=== PATIENT | female | born 1970 ===

== ENCOUNTER 2016-12-30 15:21 | Inpatient (IN) | payer OTHER ==
[2016-12-30 15:22] VITALS: BMI 29.8
[2016-12-30] MEDS ORDERED: Sodium Chloride 0.9% 1,000 ML IV STA ×2 (16:32→22:22)
--- NOTE | 2016-12-30 16:32 | ED PDOC ---
Arrival/HPI - General Historian: Patient - History of Present Illness Time/Duration: Other (see hpi) Context: Home - General Chief Complaint: Lower Extremity Problem/Injury Time Seen by Provider: 12/30/16 16:10 - History of Present Illness Narrative History of Present Illness (Text): 12/30/16 16:15 This 46 yo female presents to this ED c/o right groin pain x 4 days. Patient stated she developed afever that lasted for 3 days. Patient stated she had partial hysterectomy x 13 days ago[address] Patient saw Dr. Sánchez yesterday, who had ordered blood test. Patient saw Dr. Sabrina Brannon SENIOR SQL DEVELOPER, who recommended to come to ED to have right lower extremity r/o DVT. Patient denies fever, sob, cp , abdominal pain, nausea, vomiting, dizziness, rectal bleeding, or abnormal gait. (Isabel Driscoll) Past Medical History - Provider Review Nursing Documentation Reviewed: Yes - Cardiac Hx Cardiac Disorders: No - Pulmonary Hx Respiratory Disorders: No - Neurological Hx Neurological Disorder: No - HEENT Hx HEENT Disorder: No - Renal Hx Renal Disorder: No - Endocrine/Metabolic Hx Endocrine Disorders: No - Hematological/Oncological Hx Blood Disorders: No - Integumentary Hx Dermatological Disorder: No - Musculoskeletal/Rheumatological Hx Back Pain: Yes Hx Falls: No - Gastrointestinal Hx Gastrointestinal Disorders: Yes Hx Gastroesophageal Reflux: Yes - Genitourinary/Gynecological Hx Genitourinary Disorders: Yes Other/Comment: HX: ABNORMAL UTERINE BLEEDING-PT. REPORTS PERIOD STARTED August AND UP UNTIL TODAY(12/10/16) HAS HAD IRREGULAR BLEEDING HEAVY AT TIMES AND ONLY STOPS FOR A DAY OR 2. - Psychiatric Hx Psychophysiologic Disorder: No Hx Substance Use: No - Surgical History Hx Hysterectomy: Yes (12/17/13) Other/Comment: HX: CRYO-"WHEN I WAS IN MY 20'S". HX: COLON POLYPECTOMY - Anesthesia Hx Anesthesia: Yes Hx Anesthesia Reactions: No Hx Malignant Hyperthermia: No Family/Social History - Physician Review Nursing Documentation Reviewed: Yes Family/Social History: No Known Family HX Smoking Status: Former Smoker Hx Alcohol Use: Yes Frequency of alcohol use: Socially Hx Substance Use: No Allergies/Home Meds Allergies/Adverse Reactions: Allergies No Known Allergies Allergy (Verified 12/10/16 09:10) Home Medications: Home Meds Medication Instructions Recorded Confirmed Naproxen Sodium [Aleve] 220 mg PO DAILY 12/30/16 12/30/16 Medical Decision Making Re-evaluation Time: 21:11 Reassessment Condition: Re-examined, Improving,but remains with symptoms ED Course and Treatment: 12/30/16 21:[address] Sánchez regarding CT scan demonstrating pelvic abscess. Surgical consult was initiated. He agrees with plan for admission. Patient also agreed with plan for admission (Isabel Driscoll) 12/31/16 22:[address] Az Brannon, Care Information Associate who will come see patient in the morning. EKG - NSR at 84 bpm. Explained to patient the CT findings. (Júnior Oconnell) - Lab Interpretations Lab Results: 12/30/16 16:40 12/30/16 16:40 Lab Results 12/30/16 17:47: Urine HCG, Qual Negative 12/30/16 16:40: Sodium 138, Potassium 4.4, Chloride 101, Carbon Dioxide 24, Anion Gap 17, BUN 11, Creatinine 0.6, Est GFR ( Amer) > 60, Est GFR (Non- Af Amer) > 60, Random Glucose 77, Calcium 8.8, Total Bilirubin 0.8, AST 16, ALT 17, Alkaline Phosphatase 57, Total Protein 6.7, Albumin 3.6, Globulin 3.2, Albumin/Globulin Ratio 1.1, Lipase 64 12/30/16 16:40: PT 11.2, INR 1.04, APTT 29.9 12/30/16 16:40: WBC 9.5, RBC 3.35 L, Hgb 10.7 L, Hct 31.3 L, MCV 93.4, MCH 31.9 , MCHC 34.2, RDW 13.0, Plt Count 369, MPV 9.9, Gran % 73.6 H, Lymph % (Auto) 15.1 L, [place] % (Auto) 6.8 H, Eos % (Auto) 4.3, Baso % (Auto) 0.2, Gran # 7.02 H , Lymph # 1.4, [place] # 0.7 H, Eos # 0.4, Baso # 0.02 - RAD Interpretation Narrative RAD Interpretations (Text): 12/30/16 20:51 [facility] (Formerly [facility]) FINDINGS: Lower thorax: Lung bases demonstrate no consolidative lung disease. There is no pleural effusion. ABDOMEN: Liver: Liver is normal in size, position and density. Gallbladder and bile ducts: The gallbladder is normal, without visible stones or wall thickening. Pancreas: Pancreas is normal in size, position and density. Peripancreatic fat planes are clear. Spleen: Spleen is normal in size, position and density. Adrenals: The adrenal glands are normal. Kidneys and ureters: The kidneys are normal in size and density. No stones identified. No mass. Stomach and bowel: No evidence of bowel obstruction. Bowel wall thickening is present in the sigmoid colon region as well as the cecal and terminal ileal region. Appendix: Appendix is visualized and also demonstrates a thickened wall which is probably related to the remainder of the inflammatory disease. The tip extends medially and cephalic, away from the generalized pelvic intra-abdominal abscesses. PELVIS: Bladder: Unremarkable. No mass. Reproductive: Uterus is not well-visualized and there may be a partial hysterectomy. Question of a right ovarian cyst measuring 3.5 x 4 cm, although this may represent an extension of intra-abdominal abscess. ABDOMEN and PELVIS: Intraperitoneal space: Multifocal fluid collections with inflammatory changes in the lower central abdomen and pelvis bilaterally. These are compatible with intra-abdominal abscesses. No free air is noted. Bones/joints: No acute fracture. No dislocation. Soft tissues: Unremarkable. Vasculature: Unremarkable. No abdominal aortic aneurysm. Lymph nodes: No pathologically enlarged retroperitoneal adenopathy appreciated. IMPRESSION: Multiple fluid collections in the right and central pelvis suspicious for abscesses. The largest is in the cul-de-sac region measuring approximately 4 x 7 x 5 cm. Differential includes PID with bilateral tubo-ovarian abscess, less likely inflammatory bowel disease or diverticulitis with associated abscesses. There is a focal fluid collection in the right adnexal region which may represent ovarian cyst or a separate abscess. Thank you for allowing us to participate in the care of your patient. Dictated and Authenticated by: Ciaran Heard MD (Isabel Driscoll) Radiology Orders: 12/30/16 16:32 ABD PELVIS PO & IV CONTRAST [CT] Stat 12/30/16 16:35 DUPLEX LOWER EXTRM VEIN RIGHT [US] Stat 12/30/16 21:06 CHEST PORTABLE [RAD] Stat - Medication Orders Current Medication Orders: Acetaminophen (Tylenol 325mg Tab) 650 mg PO Q4H PRN PRN Reason: Fever >100.5 F Sodium Chloride (Sodium Chloride 0.9%) 1,000 mls @ 100 mls/hr IV .Q10H STA Stop: 12/31/16 08:21 Last Admin: 12/30/16 23:41 Dose: 100 mls/hr Ondansetron HCl (Zofran Inj) 4 mg IVP Q4H PRN PRN Reason: Nausea/Vomiting Discontinued Medications Famotidine (Pepcid) 20 mg IVP STAT STA Stop: 12/30/16 16:33 Last Admin: 12/30/16 16:50 Dose: 20 mg Sodium Chloride (Sodium Chloride 0.9%) 1,000 mls @ 1,000 mls/hr IV .Q1H STA Stop: 12/30/16 17:31 Last Admin: 12/30/16 16:45 Dose: 1,000 mls/hr Metronidazole (Flagyl) 500 mg in 100 mls @ 100 mls/hr IVPB STAT STA PRN Reason: Protocol Stop: 12/30/16 22:04 Last Admin: 12/30/16 23:41 Dose: 100 mls/hr Piperacillin Sod/Tazobactam Sod (Zosyn 4.5 Gm In Ns 100ml) 4.5 gm in 100 mls @ 200 mls/hr IVPB STAT STA PRN Reason: Protocol Stop: 12/30/16 21:34 Last Admin: 12/30/16 21:55 Dose: 200 mls/hr Iohexol (Omnipaque 240 (50 Ml)) Confirm Administered Dose 50 ml .ROUTE .STK-MED ONE Stop: 12/30/16 17:39 Iohexol (Omnipaque 350 100 Ml) Confirm Administered Dose 350 mg .ROUTE .STK-MED ONE Stop: 12/30/16 19:50 Disposition/Present on Arrival - Present on Arrival Any Indicators Present on Arrival: No History of DVT/PE: No History of Uncontrolled Diabetes: No Urinary Catheter: No History of Decub. Ulcer: No History Surgical Site Infection Following: None - Disposition Have Diagnosis and Disposition been Completed?: Yes Disposition Time: 21:11 Patient Plan: Admission - Disposition Diagnosis: Pelvic abscess in female Disposition: HOSPITALIZED Condition: STABLE
[2016-12-30 16:50] LABS: BASO # 0.02 K/mm3 (0.0-2.0); BASO % 0.2 % (0.0-3.0); EOS # 0.4 (0.0-0.7); EOS % 4.3 % (1.5-5.0); GRAN # 7.02 (1.4-6.5); GRAN % 73.6 % (50.0-68.0); HEMOGLOBIN 10.7 gm/dL (12.0-16.0); LYMPH # 1.4 (1.2-3.4); LYMPH % 15.1 % (22.0-35.0); MEAN CELL VOLUME 93.4 fL (80.0-105.0); MEAN CORPUSCULAR HEMOGLOBIN 31.9 pg (25.0-35.0); MEAN CORPUSCULAR HGB CONC 34.2 g/dl (31.0-37.0); MEAN PLATELET VOLUME 9.9 fl (7.0-11.0); MONO # 0.7 (0.1-0.6); MONO % 6.8 % (1.0-6.0); PLATELET COUNT 369 10^3/uL (120.0-450.0); RBC 3.35 10^6/uL (3.5-6.1); WHITE BLOOD COUNT 9.5 10^3/ul (4.5-11.0)
[2016-12-30 17:01] LABS: INR 1.04 (0.93-1.08); PARTIAL THROMBOPLASTIN TIME 29.9 Seconds (23.7-30.8); PROTHROMBIN TIME 11.2 Seconds (9.9-11.8)
[2016-12-30 17:07] LABS: ALB/GLOB RATIO 1.1 (1.1-1.8); ALBUMIN 3.6 g/dL (3.0-4.8); ALT/SGPT 17 U/L (7-56); AST/SGOT 16 U/L (15-39); BLOOD UREA NITROGEN 11 mg/dL (7-21); CALCIUM 8.8 mg/dL (8.4-10.5); GFR AFRICAN-AMERICAN > 60; GFR NON-AFRICAN AMERICAN > 60; LIPASE 64 U/L (23-300)
[2016-12-30] MEDS ORDERED: Iohexol 240 (50 ml) ONE (17:38)
[2016-12-30] MEDS ORDERED: Iohexol 350 MG/100 ML VIAL ONE (19:49)
--- NOTE | 2016-12-30 20:06 | US ---
PROCEDURE: Right lower extremity venous US HISTORY: Leg pain and swelling. Evaluate for DVT. PHYSICIAN(S): Azar Arriola M.D. TECHNIQUE: Duplex sonography and color-flow Doppler with graded compression were used to evaluate the deep venous system of the right lower extremity. FINDINGS: The visualized deep venous system of the right lower extremity is sonographically normal and compressible. Normal waveforms and augmentation are seen. There is no sonographic evidence for deep venous thrombosis in the visualized segments of the right lower extremity. IMPRESSION: 1. No sonographic evidence for deep venous thrombosis in the visualized segments of the right lower extremity.
[2016-12-30] MEDS ORDERED: Piperacill/Tazo 4.5gm in NS 4.5 GM/100 ML BAG IVPB STA (21:05)
[2016-12-30] MEDS ORDERED: metroNIDAZOLE IV 500 mg/100 ml 500 MG/100 ML BAG IVPB STA (21:05)
[2016-12-30 22:45] LABS: INR 1.06 (0.93-1.08); MAGNESIUM 2.2 mg/dL (1.7-2.2); PARTIAL THROMBOPLASTIN TIME 30.7 Seconds (23.7-30.8); PROTHROMBIN TIME 11.4 Seconds (9.9-11.8)
[2016-12-30 23:26] LABS: PH,URINE 8.5 (4.7-8.0); URINE BILIRUBIN NEGATIVE (NEGATIVE); URINE BLOOD TRACE-INTACT (NEGATIVE); URINE GLUCOSE (UA) NEGATIVE (NEGATIVE); URINE LEUKOCYTE ESTERASE NEGATIVE Leu/uL (NEGATIVE); URINE NITRATE NEGATIVE (NEGATIVE); URINE PROTEIN NEGATIVE mg/dL (<30 mg/dL)
[2016-12-30 23:38] LABS: URINE APPEARANCE SL CLOUDY (CLEAR); URINE COLOR STRAW (YELLOW)
[2016-12-30 23:44] LABS: URINE EPITHELIAL CELLS 0 - 2 /hpf (0-5); URINE RBC 0 - 2 /hpf (0-2); URINE WBC 0 - 2 /hpf (0-6)
--- NOTE | 2016-12-31 01:29 | CP.PCM.CON ---
History of Present Illness - History of Present Illness History of Present Illness: Consult Note- Pelvic fluid collection General Surgery- Dr. Watson 46F PMHx of uterine fibroids s/p open partial abdominal hysterectomy b/l salphingectomy on December 17 at [facility], presented to the ED with right groin pain x 4 days. Patient stated she developed a fever that lasted for [address] Sánchez on Tuesday and Dr. Sabrina Brannon MAINTENANCE SUPERVISOR ELECTRICAL on . Pt denies abdominal pain. +NBNB emesis. Regular BM. Pt denies fever, sob, cp, dizziness, blood per rectum. PMH: Uterine Fibroids PSH: Partial abdominal hysterectomy b/l salphingectomy (12/17/16) ALL: NKDA Social: Denies etoh / smoking Review of Systems - Review of Systems All systems: reviewed and no additional remarkable complaints except Past Patient History - Past Medical History & Family History Past Medical History?: Yes - Past Social History Smoking Status: Former Smoker - CARDIAC Hx Cardiac Disorders: No - PULMONARY Hx Respiratory Disorders: No - NEUROLOGICAL Hx Neurological Disorder: No - HEENT Hx HEENT Problems: No - RENAL Hx Chronic Kidney Disease: No - ENDOCRINE/METABOLIC Hx Endocrine Disorders: No - HEMATOLOGICAL/ONCOLOGICAL Hx Blood Disorders: No - INTEGUMENTARY Hx Dermatological Problems: No - MUSCULOSKELETAL/RHEUMATOLOGICAL Hx Back Pain: Yes Hx Falls: No - GASTROINTESTINAL Hx Gastrointestinal Disorders: Yes Hx Gastroesophageal Reflux: Yes - GENITOURINARY/GYNECOLOGICAL Hx Genitourinary Disorders: Yes Other/Comment: HX: ABNORMAL UTERINE BLEEDING-PT. REPORTS PERIOD STARTED August AND UP UNTIL TODAY(12/10/16) HAS HAD IRREGULAR BLEEDING HEAVY AT TIMES AND ONLY STOPS FOR A DAY OR 2. - PSYCHIATRIC Hx Psychophysiologic Disorder: No Hx Substance Use: No - SURGICAL HISTORY Hx Hysterectomy: Yes (12/17/13) Other/Comment: HX: CRYO-"WHEN I WAS IN MY 20'S". HX: COLON POLYPECTOMY - ANESTHESIA Hx Anesthesia: Yes Hx Anesthesia Reactions: No Hx Malignant Hyperthermia: No Meds Allergies/Adverse Reactions: Allergies Allergy/AdvReac Type Severity Reaction Status Date / Time No Known Allergies Allergy Verified 12/10/16 09:10 - Medications Medications: Current Medications Acetaminophen (Tylenol 325mg Tab) 650 mg PO Q4H PRN PRN Reason: Fever >100.5 F Sodium Chloride (Sodium Chloride 0.9%) 1,000 mls @ 100 mls/hr IV .Q10H STA Stop: 12/31/16 08:21 Last Admin: 12/30/16 23:41 Dose: 100 mls/hr Ondansetron HCl (Zofran Inj) 4 mg IVP Q4H PRN PRN Reason: Nausea/Vomiting Physical Exam - Constitutional Appears: In Acute Distress - Eye Exam Eye Exam: EOMI - ENT Exam ENT Exam: Mucous Membranes Moist - Respiratory Exam Respiratory Exam: Clear to Auscultation Bilateral, NORMAL BREATHING PATTERN. absent: Accessory Muscle Use - Cardiovascular Exam Cardiovascular Exam: REGULAR RHYTHM, +S1, +S2 - GI/Abdominal Exam GI & Abdominal Exam: Normal Bowel Sounds, Soft. absent: Bruit, Distended, Firm , Organomegaly Additional comments: Tender to deep palpation in Right Lower Quadrant - Extremities Exam Extremities exam: Positive for: normal inspection - Neurological Exam Neurological exam: Alert, Oriented x3 - Psychiatric Exam Psychiatric exam: Normal Affect - Skin Skin Exam: Warm Results - Vital Signs Recent Vital Signs: Last Vital Signs Temp 98.3 F 12/30/16 19:09 Pulse 82 12/30/16 23:30 Resp 16 12/30/16 23:30 BP 123/76 12/30/16 23:30 Pulse Ox 98 12/30/16 23:30 - Labs Result Diagrams: 12/30/16 16:40 12/30/16 16:40 Labs: Laboratory Results - last 24 hr 12/30/16 12/30/16 12/30/16 22:21 22:21 23:00 PT 11.4 INR 1.06 APTT 30.7 Phosphorus 2.7 Magnesium 2.2 Urine Color Straw Urine Appearance Sl cloudy Urine pH 8.5 Ur Specific [place] 1.010 Urine Protein Negative Urine Glucose (UA) Negative Urine Ketones 40 H Urine Blood Trace-intact H Urine Nitrate Negative Urine Bilirubin Negative Urine Urobilinogen 1.0 H Ur Leukocyte Esterase Negative Urine RBC 0 - 2 Urine WBC 0 - 2 Ur Epithelial Cells 0 - 2 Assessment & Plan - Assessment and Plan (Free Text) Assessment: 46F s/p hysterectomy on 12/17 presents with pelvic fluid collection vs abscess Plan: - Pt's MAINTENANCE SUPERVISOR ELECTRICAL to come in and f/u w/ pt - f/u IR recs - No surgical intervention - further recs per Dr. Tejal Juárez PGY1
--- NOTE | 2016-12-31 08:56 | CT ---
PROCEDURE: CT Abdomen and Pelvis with contrast HISTORY: RLQ pain COMPARISON: None. TECHNIQUE: Contrast dose: 100 cc of Omnipaque 300 Radiation dose: Total exam DLP = 906 mGy-cm. This CT exam was performed using one or more of the following dose reduction techniques: Automated exposure control, adjustment of the mA and/or kV according to patient size, and/or use of iterative reconstruction technique. FINDINGS: LOWER THORAX: Unremarkable. LIVER: Unremarkable. No gross lesion or ductal dilatation. GALLBLADDER AND BILE DUCTS: Unremarkable. PANCREAS: Unremarkable. No gross lesion or ductal dilatation. SPLEEN: Unremarkable. ADRENALS: Unremarkable. No mass. KIDNEYS AND URETERS: Unremarkable. No hydronephrosis. No solid mass. VASCULATURE: Unremarkable. No aortic aneurysm. BOWEL: Unremarkable. No obstruction. No gross mural thickening. APPENDIX: Normal appendix. PERITONEUM: Unremarkable. No free fluid. No free air. LYMPH NODES: Unremarkable. No enlarged lymph nodes. BLADDER: Unremarkable. REPRODUCTIVE: See below. BONES: No acute fracture. OTHER FINDINGS: Multiple fluid collections in the right and central pelvis compatible with abscesses the largest measuring 4 x 7 x 5 centimeters in the cul-de-sac. Findings may be secondary to pelvic inflammatory disease with bilateral tubo-ovarian abscesses. Focal fluid collection the right adnexal region may represent ovarian cyst or separate abscess.. IMPRESSION: Multiple fluid collections in the right and central pelvis compatible with abscesses the largest measuring 4 x 7 x 5 centimeters in the cul-de-sac. Findings may be secondary to pelvic inflammatory disease with bilateral tubo-ovarian abscesses. Focal fluid collection the right adnexal region may represent ovarian cyst or separate abscess..
--- NOTE | 2016-12-31 09:29 | RAD ---
HISTORY: admission COMPARISON: No prior. All the FINDINGS: LUNGS: No active pulmonary disease. PLEURA: No significant pleural effusion identified, no pneumothorax apparent. CARDIOVASCULAR: Normal. OSSEOUS STRUCTURES: No significant abnormalities. VISUALIZED UPPER ABDOMEN: Normal. OTHER FINDINGS: None. IMPRESSION: No active disease.
[2016-12-31] MEDS ORDERED: Vancomycin 1gm in NS 250ml 1 GM/250 ML BAG IVPB SCH (10:00)
[2016-12-31] MEDS ORDERED: Piperacillin/Tazobact 3.375 gm 100 ML IVPB SCH (12:00)
--- NOTE | 2016-12-31 12:09 | CARD ---
APPROVED REPORT EKG Measurement Heart [id number] [place] [id number] <Conclusion> Normal sinus rhythm Normal ECG
[2016-12-31] MEDS ORDERED: Midazolam 2 MG/2 ML VIAL ONE (15:00)
--- NOTE | 2016-12-31 18:07 | CON ---
DATE: 12/31/2016 The patient is in room 566, bed 1. CHIEF COMPLAINT: Groin pain x1-2 days duration. HISTORY OF PRESENT ILLNESS: This is a 46-year-old female with past medical history of GERD, and chronic back pain. The patient has had a hysterotomy 2 weeks ago at [facility], was found complaining of groin pain, had a PET scan, which showed an abscess in a infectious diseases, consult requested for antibiotic choice. REVIEW OF SYSTEM: Reveals the patient did have fever and occasional chills. She did have a abdominal pain, she did have nausea, but no vomiting, she had an episode of diarrhea, but no bright red blood per rectum. PAST MEDICA HISTORY: Significant for GERD. PAST SURGICAL HISTORY: Significant for recent hysterotomy. The patient works in a bank. No travel outside the recently. MEDICATION AT HOME: Naprosyn, she is on for pain. PHYSICAL EXAMINATION: GENERAL: She is in bed, answering questions appropriately, awake and alert. VITAL SIGNS: Temperature of 98, heart rate of 91, respiratory rate of 19 and blood pressure is 105/70. HEENT: Unremarkable. NECK: Supple. LUNGS: Decreased breath sounds. HEART: Normal S1 and S2. ABDOMEN: Soft and nontender. SKIN: Wound is clean. No evidence of skin infection. LABORATORY DATA: Reveals a white count of 9.5, hemoglobin of 10, platelets of 369, 73% neutrophils, BUN 11, creatinine of 0.6. Lipase is normal. LFTs are normal. Urinalysis is unremarkable. Microbiology is pending. PET scan result are reviewed, which was read by Dr. Narinder Chambers, which is reported to have a collection, multiple fluid collection in right center pelvic compatible with abscesses largest measuring 4 x 7 x 5 cm. The patient also had a chest x-ray which was reported today to be negative. No active pulmonary lung diseases. ASSESSMENT AND PLAN: This is a 46-year-old female with gastroesophageal reflux disease, status post hysterotomy two weeks ago now presenting with pain with fever at home and occasional chills with #1 is intra-abdominal abscess and pelvic abscess, post hysterotomy. We will start vancomycin and Zosyn immediately after the patient had a CAT scan directed aspiration by Dr. Azar Arriola, this morning, though hold off antibiotics since the patient is not having any fever, no tachycardia. She does not have any systemic illness, so not to disturb the culture results. We will hold off the vancomycin and Zosyn as this morning. Pending of Dr. Azar Arriola's review of the CAT scan and possible CAT scan directed aspirations of the abscess for cultures. Case discussed with Dr. Isaac at length and we will also ordered blood, urine cultures and awaiting for input form Dr. Azar Arriola. We also order an HIV test because the patient is age of 46. We will follow closely with you. Robby Sotelo MD
[2016-12-31] MEDS: Oxycodone/Acetaminophen 5/325 mg Tab PO PRN (18:48)
--- NOTE | 2016-12-31 19:21 | CT ---
PROCEDURE: CT-guided pelvic abscess drainage HISTORY: Recent hysterectomy. Pelvic fluid collection consistent with pelvic abscess. PHYSICIAN(S): Azar Arriola MD. TECHNIQUE: The relative risks and indications for the procedure were explained to the patient and informed consent obtained. The patient was placed in a slight right decubitus position on the CT scanner and preliminary images through the pelvis performed. This revealed a 7 cm lobulated fluid adjacent to the needle site.. A left trans gluteal approach was selected and the area prepped/draped in the usual sterile fashion. Conscious sedation and monitoring were provided throughout the procedure by nurse. An 18-gauge needle was advanced into the collection and 10 cc of yellow fluid aspirated. A specimen was sent to microbiology. A 0.035 J-wire was coiled within the fluid collection. Sequential dilatation was performed with subsequent placement of a 12 [place] pigtail drain. Approximately 40 cc of yellow fluid was aspirated. The cavity was lavaged with normal saline. The drain was sutured to the skin and placed to gravity drainage. Completion images were performed. The patient tolerated the procedure well. IMPRESSION: 1. CT-guided pelvic abscess drainage as described above. 2. A follow-up CT scan is recommended in 3-5 days
--- NOTE | 2016-12-31 21:46 | CP.PCM.CON ---
History of Present Illness - History of Present Illness History of Present Illness: Delayed entry; pt seen and examined today at 18:20pm 46 y/o s/p Laparascopic supracervical hysterectomy with surgicell placed over operative site 12/17/16 c/o of postoperative fever #9-10 of temperature up to 101. Pt states was evaluated by PCP in which she had extensive bloodwork performed and blood cultures and informed she had inflamed lymph nodes. Pt was evaluated by me POD #13 in which pt c/o of right sided hip pain radiating down leg, intermittent alleviated with Alleve. Pt reports hx of spinal disc degernation hx with hx of left sided sciatica and was sent to ER to rule out DVt. Pt was then subsequently worked up in which a CT Scan showed pelvic collection cannot rule out pelvic abscess. Since admission, pt underwent CT drainage by IR only 40cc of fluid was obtained and pt was to be started on antibiotics after drainage as per documentation. Pt evaluated this evening in which she was reporting pain in buttock and lower extremity with diffculty in walking and bearing weight due to cathether placement. Pt denies any fevers since admission, denies any nausea, vomiting, CP, SOB, lightheadness, dizzyness , dysuria, urgency, freuqency, vaginal bleeding, discharge, itching, calf pain. Pt states since drinking contrast from CT Scan has had multiple loose episodes of BM. Pt also reports new onset of pain after cathether placed from IR drainage. 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 hx of fibroids. aub PMH: denies PSH: Laparascopic supracervical hysterectomy FHX: non contributory MEDS: see med red NKDA SHX: negative etoh/tobacco/drugs Review of Systems - Review of Systems Systems not reviewed;Unavailable: Acuity of Condition - Constitutional Constitutional: absent: As Per HPI, Anorexia, Chills, Daytime Sleepiness, Excessive Sweating, Fatigue, Fever, Frequent Falls, Headache, Increased Appetite , Lethargy, Malaise, Night Sweats, Snoring, Sleep Apnea, Weight Gain, Weight Loss, Weakness, Other - EENT Ears: As Per HPI Nose/Mouth/Throat: As Per HPI - Cardiovascular Cardiovascular: As Per HPI - Gastrointestinal Gastrointestinal: As Per HPI, Diarrhea - Genitourinary Genitourinary: As Per HPI - Reproductive: Female Reproductive:Female: As Per HPI - Menstruation Menstruation: As Per HPI - Musculoskeletal Musculoskeletal: As Per HPI - Integumentary Integumentary: As Per HPI - Neurological Neurological: As Per HPI Past Patient History - Infectious Disease Hx of Infectious Diseases: None - Tetanus Immunizations Tetanus Immunization: Unknown - Past Medical History & Family History Past Medical History?: Yes Past Family History: Reviewed and not pertinent - Past Social History Smoking Status: Former Smoker Alcohol: None Drugs: Denies - CARDIAC Hx Cardiac Disorders: No - PULMONARY Hx Respiratory Disorders: No - NEUROLOGICAL Hx Neurological Disorder: No - HEENT Hx HEENT Problems: No - RENAL Hx Chronic Kidney Disease: No - ENDOCRINE/METABOLIC Hx Endocrine Disorders: No - HEMATOLOGICAL/ONCOLOGICAL Hx Blood Disorders: No - INTEGUMENTARY Hx Dermatological Problems: No - MUSCULOSKELETAL/RHEUMATOLOGICAL Hx Back Pain: Yes Hx Falls: No - GASTROINTESTINAL Hx Gastrointestinal Disorders: Yes Hx Gastroesophageal Reflux: Yes - GENITOURINARY/GYNECOLOGICAL Hx Genitourinary Disorders: Yes Other/Comment: HX: ABNORMAL UTERINE BLEEDING-PT. REPORTS PERIOD STARTED August AND UP UNTIL TODAY(12/10/16) HAS HAD IRREGULAR BLEEDING HEAVY AT TIMES AND ONLY STOPS FOR A DAY OR 2. - PSYCHIATRIC Hx Psychophysiologic Disorder: No Hx Substance Use: No - SURGICAL HISTORY Hx Hysterectomy: Yes (12/17/13) Other/Comment: HX: CRYO-"WHEN I WAS IN MY 20'S". HX: COLON POLYPECTOMY - ANESTHESIA Hx Anesthesia: Yes Hx Anesthesia Reactions: No Hx Malignant Hyperthermia: No Meds Allergies/Adverse Reactions: Allergies Allergy/AdvReac Type Severity Reaction Status Date / Time No Known Allergies Allergy Verified 12/10/16 09:10 - Medications Medications: Current Medications Acetaminophen (Tylenol 325mg Tab) 650 mg PO Q4H PRN PRN Reason: Fever >100.5 F Vancomycin HCl (Vancomycin 1gm) 1 gm in 250 mls @ 167 mls/hr IVPB Q12H SUMAN PRN Reason: Protocol Stop: 01/09/17 10:01 Piperacillin Sod/Tazobactam Sod (Zosyn 3.375 In Ns 100ml) 100 mls @ 200 mls/hr IVPB Q6 SUMAN PRN Reason: Protocol Stop: 01/09/17 12:01 Ondansetron HCl (Zofran Inj) 4 mg IVP Q4H PRN PRN Reason: Nausea/Vomiting Oxycodone/Acetaminophen (Percocet 5/325 Mg Tab) 1 tab PO Q6H PRN PRN Reason: Pain, Mild (1-3) Stop: 01/03/17 15:44 Last Admin: 12/31/16 18:48 Dose: 1 tab Physical Exam - Constitutional Appears: Well, Non-toxic - Head Exam Head Exam: ATRAUMATIC, NORMAL INSPECTION - Eye Exam Eye Exam: EOMI, Normal appearance Pupil Exam: NORMAL ACCOMODATION, PERRL - ENT Exam ENT Exam: Mucous Membranes Moist, Normal Exam - Neck Exam Neck exam: Positive for: Normal Inspection - Respiratory Exam Respiratory Exam: Clear to Auscultation Bilateral, NORMAL BREATHING PATTERN - Cardiovascular Exam Cardiovascular Exam: REGULAR RHYTHM, +S1, +S2 - GI/Abdominal Exam GI & Abdominal Exam: Normal Bowel Sounds, Soft Additional comments: non tender, no guarding, no rebound tenderness, no rigidity, +BS Inciscion C/D/I healing well No vaginal bleeding - Rectal Exam Additional comments: + bandage from IR Cathether drainind minimal amount of fluid Area c/d/i - Extremities Exam Extremities exam: Positive for: normal inspection - Back Exam Back exam: NORMAL INSPECTION - Neurological Exam Neurological exam: Alert, CN II-XII Intact, Oriented x3 - Psychiatric Exam Psychiatric exam: Normal Affect, Normal Mood - Skin Skin Exam: Dry, Intact, Normal Color, Warm Additional comments: negateive alfonzo's sign Results - Vital Signs Recent Vital Signs: Last Vital Signs Temp 97.9 F 12/31/16 16:23 Pulse 74 12/31/16 16:23 Resp 17 12/31/16 16:23 BP 128/74 12/31/16 16:23 Pulse Ox 99 12/31/16 16:23 - Labs Result Diagrams: 12/30/16 16:40 12/30/16 16:40 Labs: Laboratory Results - last 24 hr 12/30/16 12/30/16 12/30/16 22:21 22:21 22:23 PT 11.4 INR 1.06 APTT 30.7 Phosphorus 2.7 Magnesium 2.2 Urine Color Urine Appearance Urine pH Ur Specific [place] Urine Protein Urine Glucose (UA) Urine Ketones Urine Blood Urine Nitrate Urine Bilirubin Urine Urobilinogen Ur Leukocyte Esterase Urine RBC Urine WBC Ur Epithelial Cells Blood Type O POSITIVE Antibody Screen Negative BBK History Checked Patient has bt 12/30/16 23:00 PT INR APTT Phosphorus Magnesium Urine Color Straw Urine Appearance Sl cloudy Urine pH 8.5 Ur Specific [place] 1.010 Urine Protein Negative Urine Glucose (UA) Negative Urine Ketones 40 H Urine Blood Trace-intact H Urine Nitrate Negative Urine Bilirubin Negative Urine Urobilinogen 1.0 H Ur Leukocyte Esterase Negative Urine RBC 0 - 2 Urine WBC 0 - 2 Ur Epithelial Cells 0 - 2 Blood Type Antibody Screen BBK History Checked Assessment & Plan (1) Postoperative fever Assessment and Plan: 46 y/o s/p Laparascopic SUMAN (with surgicell/hemostatic agent placement over operative site) 12/17 with subjective fever with pelvic collection cannot rule out pelvic abscess HD#1, currently stable -pt afebrile, VSS, no evidence of leukocytosis, Abdominal exam benign. Based on CT findings high likelihood of normal postoperative changes however based on possible suspicion of pelvic abscess will continue to follow with IR/ID recommendations -WBC 9, CXR negative, urine Cx: negative, Blood cx pending -s/p IR Drainage only 40 cc fluid: f/u culture -s/p ID consult: Zoysyn -s/p Surgery consult -Encourage ambulation, DVT prophylaxis -Incentive spirometer -regular diet above findings discussed with patient and partner in detail. all questions answered. Will continue to follow. Sabrina Brannon MD [phone] Status: Acute
[2017-01-01] MEDS: Oxycodone/Acetaminophen 5/325 mg Tab PO PRN (05:20)
[2017-01-01 07:22] LABS: BASO # 0.03 K/mm3 (0.0-2.0); BASO % 0.4 % (0.0-3.0); EOS # 0.7 (0.0-0.7); EOS % 9.9 % (1.5-5.0); GRAN # 4.52 (1.4-6.5); GRAN % 66.5 % (50.0-68.0); HEMOGLOBIN 9.7 gm/dL (12.0-16.0); LYMPH # 1.2 (1.2-3.4); LYMPH % 17.6 % (22.0-35.0); MEAN CELL VOLUME 94.9 fL (80.0-105.0); MEAN CORPUSCULAR HEMOGLOBIN 30.8 pg (25.0-35.0); MEAN CORPUSCULAR HGB CONC 32.4 g/dl (31.0-37.0); MEAN PLATELET VOLUME 9.7 fl (7.0-11.0); MONO # 0.4 (0.1-0.6); MONO % 5.6 % (1.0-6.0); PLATELET COUNT 375 10^3/uL (120.0-450.0); RBC 3.15 10^6/uL (3.5-6.1); RED CELL DISTRIBUTION WIDTH 13.1 % (11.5-14.5); WHITE BLOOD COUNT 6.8 10^3/ul (4.5-11.0)
[2017-01-01] MEDS ORDERED: Vancomycin 1gm in NS 250ml 1 GM/250 ML BAG IVPB SCH (09:30)
[2017-01-01] MEDS: Piperacillin/Tazobact 3.375 gm 100 ML IVPB SCH ×4 (09:30→23:47)
--- NOTE | 2017-01-01 09:52 | PN ---
DATE: 01/01/2017 SUBJECTIVE: The patient has no complaints. No chest pain. No shortness of breath. She is complaining of pain after the procedure yesterday. PHYSICAL EXAMINATION: VITAL SIGNS: Temperature is 98.9, pulse of 64, blood pressure is 104/56, respirations is 20. GENERAL: The patient is lying in bed flat, comfortable, in no acute distress. NECK: No JVD, adenopathy or thyromegaly. LUNGS: Clear to auscultation bilaterally. Good bilateral air entry. No wheezes or rhonchi. CARDIAC: S1, S2 is regular. No murmurs, rubs or gallops. ABDOMEN: Bowel sounds are positive, soft, nondistended. EXTREMITIES: No cyanosis, clubbing or edema. PSYCHIATRIC: She is alert, awake, oriented x3. LABORATORY DATA: White count 6.8, hemoglobin 9.7. Creatinine 0.6. ASSESSMENT: Pelvic abscess. PLAN: The patient is currently getting Percocet for pain. She is on Tylenol as needed. She is on antibiotics with vancomycin and Zosyn. She had been on a liquid diet. I will advance her diet to a regular diet. We will wait for . She will need a repeat CAT scan in 2 or 3 days. I did speak to Dr. Sotelo regarding the case and his decision. Geoff Sánchez MD
--- NOTE | 2017-01-01 11:10 | PN ---
DATE: 01/01/2017 Note: This is a late entry report from yesterday. SUBJECTIVE: The patient has no complaints of any chest pain or shortness of breath. No headaches or dizziness. PHYSICAL EXAMINATION: VITAL SIGNS: Temperature is 97.9, pulse of 74, blood pressure 120/74, respirations 18. GENERAL: The patient is comfortable, in no acute distress. HEENT: Anicteric sclerae. Moist mucosa. NECK: No JVD or adenopathy. CARDIAC: S1, S2. No murmurs. No rubs. Regular. RESPIRATORY: Clear to auscultation bilaterally. No wheezes, rales, or rhonchi. Good air entry. ABDOMEN: Bowel sounds are positive, soft, nontender, and nondistended. EXTREMITIES: No edema. Has 1+ pulses. LABORATORY DATA: Have been reviewed. ASSESSMENT: Pelvic abscess. PLAN: The patient was scheduled for drainage of the abscess. She is getting antibiotics. I did speak to Dr. Sotelo regarding the case. I will await culture results. Pain is controlled with Tylenol. She is on Zofran as needed. Geoff Sánchez MD
--- NOTE | 2017-01-01 11:35 | PN ---
DATE: 01/01/2017 SUBJECTIVE: The patient is seen in bed, in no acute distress, nontoxic. No fevers and chills. PHYSICAL EXAMINATION VITAL SIGNS: Temperature is 98, blood pressure is 104/60, respiratory rate of 20, heart rate of 87. HEENT: Unremarkable. NECK: Supple. LUNGS: Decreased breath sounds. HEART: Normal S1 and S2. ABDOMEN: Soft and nontender. LABORATORY DATA: Reveals a white count of 6.8, hemoglobin of 9, platelets of 375. Coagulation is noted. Chemistries reveal a BUN of 11, creatinine of 0.6. Urinalysis is noted and HIV is negative. Microbiology reveals the blood cultures, no growth. Urine cultures, no growth. The cultures from the body fluid and the abscess are pending. No fungal elements are seen on the Gram stain of the same culture. Review of orders reveal the patient is to start vancomycin and Zosyn. We will make further recommendations pending culture results. Dr. Azar Arrioal's note is reviewed from the procedure. ASSESSMENT AND PLAN: This is a 46-year-old female with status post recent hysterectomy which started as a laparoscopic hysterectomy; however, had an open hysterectomy 2 weeks ago for fibroids, now presenting with intraabdominal abscess and pelvic abscess, status post CAT scan directed drainage, now with the drainage bag and on vancomycin and Zosyn. Pending workup results and culture results from Dr. Azar Arriola's procedure. Robby Sotelo MD
[2017-01-02] MEDS: Piperacillin/Tazobact 3.375 gm 100 ML IVPB SCH ×3 (06:40→17:28)
--- NOTE | 2017-01-02 11:12 | PN ---
DATE: 01/02/2017 SUBJECTIVE: The patient is in bed, in no acute distress, nontoxic. PHYSICAL EXAMINATION: VITAL SIGNS: Temperature is 98, blood pressure is 104/56, respiratory rate of 20. HEENT: Unremarkable. NECK: Supple. LUNGS: Decreased breath sounds. HEART: Normal S1, S2. ABDOMEN: Soft and nontender. LABORATORY DATA: Reveals a white count of 6.8, hemoglobin of 9. Chemistries are noted a BUN of 11, creatinine of 0.6. Urinalysis is noted and HIV is negative. Microbiology reveals one bottle is positive for Gram-positive cocci in the blood, it is coag-negative staph, and repeat blood cultures are negative. The wound cultures are pending. MEDICATIONS: The patient is currently on Zosyn. The patient was given vancomycin yesterday and she developed itching immediately after the vancomycin, and vancomycin was discontinued. ASSESSMENT AND PLAN: A 46-year-old female with recent hysterectomy, possibly two weeks ago, which started as a laparoscopic hysterectomy and end up as an open hysterectomy for fibroids, presented now with intraabdominal abscess and pelvic abscess on CAT scan, had a CAT scan-guided drainage by Dr. Azar Arriola, developed a reaction to vancomycin, currently on Zosyn, waiting for culture results from Dr. Azar Arriola's procedure, and the patient currently has a drainage tube and feels much improved, tolerating the Zosyn, waiting for culture results. Robby Sotelo MD
--- NOTE | 2017-01-02 13:58 | PN ---
DATE: 01/02/2017 SUBJECTIVE: The patient with no complaints of any chest pain or shortness of breath. She states her right leg pain is better. PHYSICAL EXAMINATION: VITAL SIGNS: Temperature is 98.6, pulse is 71, blood pressure 110/62 and respirations 18. GENERAL: The patient is comfortable, in no acute distress. HEENT: Anicteric sclerae. Moist mucosa. NECK: No JVD or adenopathy. CARDIAC: S1, S2. No murmurs. No rubs. Regular. RESPIRATORY: Clear to auscultation bilaterally. No wheezes, rales, or rhonchi. Good air entry. ABDOMEN: Bowel sounds are positive, soft, nontender, and nondistended. EXTREMITIES: No edema. Has 1+ pulses. LABORATORY DATA: White count of 6.8, hemoglobin 9.7. ASSESSMENT: 1. Pelvic abscess. 2. Status post hysterectomy. PLAN: The patient is currently comfortable. She is on Percocet for pain. The patient is on Zofran. The patient has Zosyn for antibiotics. On a regular diet. Geoff Sánchez MD
--- NOTE | 2017-01-02 18:34 | CP.PCM.PN ---
Subjective - Date & Time of Evaluation Date of Evaluation: 01/02/17 Time of Evaluation: 11:00 - Subjective Subjective: Delayed Entry: Pt seen and examined reports having discomfort in lower extremity where drain is placed controlled with pain medication. Pt denies any fevers, chills, nausea , vomiting, Cp, SOB, lightheadness, dizzyness, discharge, itching, abodminal pain, bowel or bladder complaints. Pt reports feeling well. Objective - Vital Signs/Intake and Output Vital Signs (last 24 hours): Temp Pulse Resp BP Pulse Ox 98.2 F 74 18 100/63 98 01/02/17 16:00 01/02/17 16:00 01/02/17 16:00 01/02/17 16:00 01/02/17 07:32 Intake and Output: 01/02/17 01/02/17 06:59 18:59 Intake Total 300 640 Balance 300 640 - Medications Medications: Current Medications Acetaminophen (Tylenol 325mg Tab) 650 mg PO Q4H PRN PRN Reason: Fever >100.5 F Last Admin: 01/02/17 16:39 Dose: 650 mg Piperacillin Sod/Tazobactam Sod (Zosyn 3.375 In Ns 100ml) 100 mls @ 200 mls/hr IVPB Q6 SUMAN PRN Reason: Protocol Stop: 01/06/17 09:30 Last Admin: 01/02/17 17:28 Dose: 200 mls/hr Ondansetron HCl (Zofran Inj) 4 mg IVP Q4H PRN PRN Reason: Nausea/Vomiting Oxycodone/Acetaminophen (Percocet 5/325 Mg Tab) 1 tab PO Q6H PRN PRN Reason: Pain, Mild (1-3) Stop: 01/03/17 15:44 Last Admin: 01/01/17 05:20 Dose: 1 tab - Labs Labs: 01/01/17 06:48 PT 11.4 Seconds (9.9-11.8) 12/30/16 22:21 INR 1.06 (0.93-1.08) 12/30/16 22:21 APTT 30.7 Seconds (23.7-30.8) 12/30/16 22:21 - Constitutional Appears: Well, Non-toxic - Head Exam Head Exam: ATRAUMATIC, NORMAL INSPECTION - Eye Exam Eye Exam: EOMI, PERRL Pupil Exam: NORMAL ACCOMODATION - ENT Exam ENT Exam: Mucous Membranes Moist, Normal Exam - Neck Exam Neck Exam: Full ROM, Normal Inspection - Respiratory Exam Respiratory Exam: Clear to Ausculation Bilateral, NORMAL BREATHING PATTERN - Cardiovascular Exam Cardiovascular Exam: REGULAR RHYTHM, +S1, +S2 - GI/Abdominal Exam GI & Abdominal Exam: Soft, Normal Bowel Sounds Additional comments: non tender, no guarding, no rebound tenderness, no rigidity, +BS Incisions C/D/I healing welll, no erythema, no discharge - Rectal Exam Additional comments: + Drain C/D/I Minimal drainage <30cc since insertion, serous fluid - Extremities Exam Extremities Exam: Full ROM, Normal Inspection Additional comments: no calf tenderness, negative alfonzo's sign - Back Exam Back Exam: NORMAL INSPECTION - Neurological Exam Neurological Exam: Alert, Awake, Oriented x3 - Psychiatric Exam Psychiatric exam: Normal Affect, Normal Mood - Skin Skin Exam: Dry, Intact, Normal Color, Warm Assessment and Plan (1) Postoperative fever Assessment & Plan: 46 y/o s/p Laprascopic supracervical hysterectomy with mini laparatomy for specimen removal 12/17/16 also with intraoperative Surgicell placement with non specific postoperative fever with intraabominal pelvic collection cannot rule out abscess -VSS, Afebrile, No evidence of leukoycytoisis, Abdominal exam benign -CXR negative, LE Duplex negative -CT Scan: non specific collection: normal postoperative findings vs abscess -s/p Surgery consult: no surgical intervention -s/p IR Drainage 40cc -Culture; Prelim Collection, negative to date Blood Cx: +1/2 Postiive Gram positive cocci - possible skin contaminant, however will f/u final cx results Urine Cx: negative -s/p ID Consult: On Zoysn, s/p Vancomycin d/c due to Itching -As per pt: plan is for repeat CT Scan tomorrow, possible removal of catheter pending cultures, d/c home with po antibiotics -Currently stable. Advised to follow up in office 1 week. Plan of care discussed with PCP Please call if any questions or concerns. Sabrina Brannon [phone] Status: Acute
[2017-01-03] MEDS: Piperacillin/Tazobact 3.375 gm 100 ML IVPB SCH ×4 (00:02→18:36)
[2017-01-03] MEDS ORDERED: Barium Sulfate Susp 2.1% w/v, 2.0% w/w 450 mL Bottle PO ONE (09:27)
[2017-01-03] MEDS ORDERED: Iohexol 350 MG/100 ML VIAL ONE (09:32)
--- NOTE | 2017-01-03 12:22 | PN ---
DATE: 01/03/2017 SUBJECTIVE: The patient has no complaints of any chest pain or shortness of breath. No headache. PHYSICAL EXAMINATION VITAL SIGNS: Temperature is 98.2, pulse is 68, blood pressure is 107/70 and respirations 18. GENERAL: The patient is comfortable, in no acute distress. HEENT: Anicteric sclerae. Moist mucosa. NECK: No JVD or adenopathy. CARDIAC: S1, S2. No murmurs. No rubs. Regular. RESPIRATORY: Clear to auscultation bilaterally. No wheezes, rales, or rhonchi. Good air entry. ABDOMEN: Bowel sounds are positive, soft, nontender, and nondistended. EXTREMITIES: No edema. Has 1+ pulses. LABORATORY DATA: White count of 6.8, hemoglobin 9.7. ASSESSMENT: 1. Pelvic abscess. 2. Status post hysterectomy. PLAN: The patient is feeling well. She is on Percocet for pain. She is receiving Zofran as needed. She is on Zosyn for antibiotics. She is on a regular diet. She is able to ambulate. We will order repeat CT of the pelvis to see if she is improved and her drain can be taken out. Geoff Sánchez MD
--- NOTE | 2017-01-03 15:01 | CT ---
PROCEDURE: CT Pelvis without contrast HISTORY: pelvic abscess COMPARISON: 12/30/2016 TECHNIQUE: Contiguous axial images of the pelvis . No intravenous or oral contrast given. Coronal and sagittal reformats generated. Radiation dose: Total exam DLP = 510 mGy-cm. This CT exam was performed using one or more of the following dose reduction techniques: Automated exposure control, adjustment of the mA and/or kV according to patient size, and/or use of iterative reconstruction technique. FINDINGS: BLADDER: Unremarkable. No mass. REPRODUCTIVE ORGANS: Unremarkable. VISUALIZED BOWEL: Unremarkable. PERITONEUM: There is a drainage catheter in the left side of the pelvis adjacent to the rectum. The fluid collection seen previously in this location has decreased in size. There is a persistent fluid collection on the right side of the pelvis measuring 26 x 40 mm. This is unchanged. LYMPH NODES: Unremarkable. No enlarged lymph nodes. BONES: No fracture or focal lesion. VASCULATURE: Unremarkable. OTHER FINDINGS: None. IMPRESSION: There is a drainage catheter in the left side of the pelvis adjacent to the rectum. The fluid collection seen previously in this location has decreased in size. There is a persistent fluid collection on the right side of the pelvis measuring 26 x 40 mm. This is unchanged.
--- NOTE | 2017-01-03 16:22 | CP.PCM.PN ---
Subjective - Date & Time of Evaluation Date of Evaluation: 01/03/17 Time of Evaluation: 10:25 - Subjective Subjective: Comfortable, less pain in the abdomen, no nausea, no diarrhea currently. No fevers overnight. Objective - Vital Signs/Intake and Output Vital Signs (last 24 hours): Temp Pulse Resp BP Pulse Ox 98.2 F 68 18 107/70 98 01/03/17 08:00 01/03/17 08:00 01/03/17 08:00 01/03/17 08:00 01/03/17 08:00 Intake and Output: 01/03/17 01/03/17 06:59 18:59 Intake Total 720 960 Output Total 30 Balance 690 960 - Medications Medications: Current Medications Acetaminophen (Tylenol 325mg Tab) 650 mg PO Q4H PRN PRN Reason: Fever >100.5 F Last Admin: 01/03/17 09:29 Dose: 650 mg Piperacillin Sod/Tazobactam Sod (Zosyn 3.375 In Ns 100ml) 100 mls @ 200 mls/hr IVPB Q6 SUMAN PRN Reason: Protocol Stop: 01/06/17 09:30 Last Admin: 01/03/17 12:34 Dose: 200 mls/hr Ondansetron HCl (Zofran Inj) 4 mg IVP Q4H PRN PRN Reason: Nausea/Vomiting - Labs Labs: 01/01/17 06:48 PT 11.4 Seconds (9.9-11.8) 12/30/16 22:21 INR 1.06 (0.93-1.08) 12/30/16 22:21 APTT 30.7 Seconds (23.7-30.8) 12/30/16 22:21 - Constitutional Appears: Non-toxic, No Acute Distress - Head Exam Head Exam: NORMAL INSPECTION - Neck Exam Neck Exam: absent: Meningismus - Respiratory Exam Respiratory Exam: Decreased Breath Sounds - Cardiovascular Exam Cardiovascular Exam: +S1, +S2 - GI/Abdominal Exam GI & Abdominal Exam: Soft. absent: Tenderness Assessment and Plan - Assessment and Plan (Free Text) Plan: Assessment Probable intra-abdominal/pelvic abscess S/P CT-guided drainage; patient had hyterectomy 2 weeks ago for uterine fibroids Plan Continue Zosyn pending repeat CT scan of the abdomen and pelvis done today; follow up final cx results from the pelvic fluid
[2017-01-03] MEDS ORDERED: Oxycodone/Acetaminophen 10/325 mg Tab PO PRN (20:08)
[2017-01-04] MEDS: Piperacillin/Tazobact 3.375 gm 100 ML IVPB SCH ×4 (05:34→17:12)
--- NOTE | 2017-01-04 06:16 | PN ---
SUBJECTIVE: The patient has no complaints of any chest pain or shortness of breath. She says that she has been having pain in back. She does have a history of back problems. She has no complaints of headaches or dizziness. No nausea. She has been tolerating her diet. PHYSICAL EXAMINATION VITAL SIGNS: Temperature is 98.1, pulse of 70, blood pressure 109/64, respirations 17, O2 saturation 100%. GENERAL: The patient is comfortable, in no acute distress. HEENT: Anicteric sclerae. Moist mucosa. NECK: No JVD or adenopathy. CARDIAC: S1, S2. No murmurs. No rubs. Regular. RESPIRATORY: Clear to auscultation bilaterally. No wheezes, rales, or rhonchi. Good air entry. ABDOMEN: Bowel sounds are positive, soft, nontender, and nondistended. EXTREMITIES: No edema. Has 1+ pulses. She has a drain coming with minimal drainage from the last 24 hours. ASSESSMENT: 1. Pelvic abscess. 2. Status post hysterectomy. PLAN: The patient is comfortable. She had a CAT scan of her pelvis that *------*. There is decrease in size of her left abscess. The patient is on Percocet for pain. She has *------* on the right side of the pelvis that still persists with the abscess. I will speak to Dr. Azar Arriola regarding this. The patient is on Zosyn for antibiotics. She is on Zofran for nausea. She is on Tylenol, Percocet for pain. She is on a regular diet. Geoff Snáchez MD
[2017-01-04] MEDS ORDERED: Midazolam 2 MG/2 ML VIAL ONE (10:15)
[2017-01-04] MEDS ORDERED: Sodium Chloride 0.45% 1,000 ML IV SCH (11:30)
--- NOTE | 2017-01-04 14:27 | CP.PCM.PN ---
Subjective - Date & Time of Evaluation Date of Evaluation: 01/04/17 Time of Evaluation: 08:55 - Subjective Subjective: Comfortable, no fevers, for removal of the abdominal drain today. Objective - Vital Signs/Intake and Output Vital Signs (last 24 hours): Temp Pulse Resp BP Pulse Ox 97.7 F 65 16 139/86 94 L 01/04/17 07:51 01/04/17 07:51 01/04/17 07:51 01/04/17 07:51 01/04/17 07:51 Intake and Output: 01/04/17 01/04/17 06:59 18:59 Intake Total 800 Balance 800 - Medications Medications: Current Medications Acetaminophen (Tylenol 325mg Tab) 650 mg PO Q4H PRN PRN Reason: Fever >100.5 F Last Admin: 01/03/17 20:03 Dose: 650 mg Piperacillin Sod/Tazobactam Sod (Zosyn 3.375 In Ns 100ml) 100 mls @ 200 mls/hr IVPB Q6 SUMAN PRN Reason: Protocol Stop: 01/06/17 09:30 Last Admin: 01/04/17 05:34 Dose: 200 mls/hr Ondansetron HCl (Zofran Inj) 4 mg IVP Q4H PRN PRN Reason: Nausea/Vomiting Oxycodone/Acetaminophen (Percocet 10/325 Mg Tab) 1 tab PO Q6H PRN PRN Reason: Pain, moderate (4-7) - Labs Labs: 01/01/17 06:48 PT 11.4 Seconds (9.9-11.8) 12/30/16 22:21 INR 1.06 (0.93-1.08) 12/30/16 22:21 APTT 30.7 Seconds (23.7-30.8) 12/30/16 22:21 - Constitutional Appears: Non-toxic, No Acute Distress - Head Exam Head Exam: NORMAL INSPECTION - Respiratory Exam Respiratory Exam: Decreased Breath Sounds - Cardiovascular Exam Cardiovascular Exam: +S1, +S2 - GI/Abdominal Exam GI & Abdominal Exam: Soft. absent: Tenderness Assessment and Plan - Assessment and Plan (Free Text) Plan: Assessment Probable intra-abdominal/pelvic abscess S/P CT-guided drainage; patient had hysterectomy 2 weeks ago for uterine fibroids coagulase negative staph in 1 out of 4 bottles, probably contamination Plan on Zosyn - fluid cx are negative - patient can be switched to PO Augmentin as discussed with Dr. Burroughs, with outpatient follow up with PMD and [facility] [facility] [employer]
[2017-01-04 20:44] VITALS: BP 138/85; PULSE 60; RESP 16; TEMP 98; O2SAT 100
[2017-01-05] MEDS ORDERED: [UNRECOGNIZED DRUG - OTHER] XX ONE (08:05)
--- NOTE | 2017-01-06 21:12 | CT ---
PROCEDURE: CT-guided pelvic aspiration HISTORY: Recent hysterectomy. Pelvic collection status post percutaneous drain. 4 cm undrained right pelvic fluid collection. PHYSICIAN(S): Azar Arriola MD. TECHNIQUE: The relative risks and indications for the procedure were explained to the patient and informed consent obtained. The patient was placed in a prone position on the CT scanner and preliminary images through the pelvis performed. This revealed the percutaneous drain in good position. There remains a loculated 4 cm fluid collection adjacent to the drain in the right pelvis. A right trans gluteal approach was selected the area prepped and draped usual sterile fashion. Conscious sedation monitoring were provided throughout the procedure by a nurse. An 18 gauge needle was advanced into the fluid collection and 4 cc of clear yellow orange fluid aspirated. The specimen was sent to microbiology. The percutaneous drain was removed without incident. IMPRESSION: 1. CT-guided aspiration of her residual 4 cm right pelvic fluid collection. A specimen was sent to microbiology. 2. Removal of the patient's left trans gluteal pelvic drain
== END 2017-01-04 18:00 | disposition home or self-care (01) | DRG 759 ==
LOC: ED 15:21 → ERH 21:12 → 5RNO 12-31 00:47
PROVIDERS: ADMIT Internal Medicine Nephrology; ATTEND Internal Medicine Nephrology
PROC: 0J9C30Z Drainage of Pelvic Region Subcutaneous Tissue and Fascia with Drainage Device, Percutaneous Approach (ICD-10-PCS; principal; 2016-12-31 14:00)
PROC: 0J9C3ZZ Drainage of Pelvic Region Subcutaneous Tissue and Fascia, Percutaneous Approach (ICD-10-PCS; 2017-01-04)
PROC: 0JP Subcutaneous Tissue and Fascia, Removal (ICD-10-PCS; 2017-01-04)
DX: N73.9 Female pelvic inflammatory disease, unspecified (principal); R50.82 Postprocedural fever; G89.29 Other chronic pain; K21.9 Gastro-esophageal reflux disease without esophagitis; M54.9 Dorsalgia, unspecified; Z90.710 Acquired absence of both cervix and uterus; Z87.891 Personal history of nicotine dependence